=== PATIENT | male | born 1935 | race African-American/Black ===

== ENCOUNTER 2020-05-19 21:31 | Inpatient (IN) ==
[2020-05-19] MEDS ORDERED: cloNIDine 0.1 MG TABLET PO STA (22:15)
[2020-05-19] MEDS ORDERED: cloNIDine 0.1 MG TABLET ONE (22:15)
[2020-05-19] MEDS ORDERED: SODIUM CHLORIDE 0.9% 1,000 ML IV STA (22:31)
[2020-05-19] MEDS ORDERED: ONDANSETRON 4 MG/2 ML VIAL IV STA (22:31)
[2020-05-19] MEDS ORDERED: MORPHINE 4 MG/1 ML VIAL IV STA (22:31)
[2020-05-19 22:38] LABS: Basophils % 0.2 % (0.0-0.8); Eosinophils % 0.1 % (0.00-10.9); Hemoglobin 11.4 GM/DL (14.0-18.0); Immature Granulocytes % 0.5 %; Immature Granulocytes Absolute 0.06 #; Lymphocytes # 1.4 10*3/uL (1.4-4.0); Lymphocytes % 12.2 % (21.2-54.2); Mean Corpuscular HGB Conc 32.6 GM/DL (32-36); Mean Corpuscular Volume 106.4 FL (87-102); Mean Platelet Volume 9.8 FL (9.6-12.0); Monocytes % 5.5 % (1.7-12.7); Neutrophils % 81.5 % (38.7-73.9); Platelet Count 230 T/CUMM (130-400); Red Blood Count 3.29 MC/CUMM (3.8-5.5); Red Cell Distribution Width 12.9 % (9.3-17.3); White Blood Count 11.4 T/CUMM (4-12)
[2020-05-19 22:46] LABS: PT Patient Result 10.3 SECS (9.8-11.9); Partial Thromboplastin Time 28.9 SECS (23.9-33.8)
[2020-05-19 22:50] LABS: Alanine Aminotransferase 21 U/L (16-61); Albumin 2.9 G/DL (3.4-5.0); Alkaline Phosphatase 173 U/L (45-117); Aspartate Amino Transferase 22 U/L (0-37); Bilirubin,Total < 0.39 MG/DL (0.2-1.0); Blood Urea Nitrogen 26 MG/DL (7-18); Calcium 8.9 MG/DL (8.5-10.1); Estimated Glom Filtration Rate 59 ML/MIN; Glucose 135 MG/DL (74-106); Osmolality,Calculated 289.1 MOS/KG (273-304); Total Protein 7.3 G/DL (6.4-8.3)
[2020-05-19] MEDS ORDERED: hydrALAZINE 20 MG/1 ML VIAL IV STA (23:43)
[2020-05-20] MEDS ORDERED: MORPHINE 4 MG/1 ML VIAL IV PRN (02:15)
[2020-05-20] MEDS ORDERED: GLUCAGON 1 MG VIAL IM PRN (02:15)
[2020-05-20] MEDS ORDERED: DEXTROSE 50% 25 GM/50 ML VIAL IV PRN (02:15)
[2020-05-20] MEDS ORDERED: ONDANSETRON 4 MG/2 ML VIAL IV PRN (02:15)
[2020-05-20] MEDS ORDERED: hydrALAZINE 20 MG/1 ML VIAL IV PRN (02:30)
[2020-05-20] MEDS ORDERED: MAGNESIUM SULF RIDER 2 GM in PREMIX 1 EACH IV PRN (02:31)
[2020-05-20] MEDS ORDERED: MAGNESIUM SULF RIDER 4 GM in PREMIX 1 EACH IV PRN (02:31)
[2020-05-20] MEDS: SODIUM CHLORIDE 0.9% 1,000 ML IV SCH ×2 (03:00→16:26)
[2020-05-20 08:18] LABS: Basophils % 0.3 % (0.0-0.8); Eosinophils % 0.4 % (0.00-10.9); Hematocrit 34.9 VOL% (42.0-52.0); Hemoglobin 11.1 GM/DL (14.0-18.0); Immature Granulocytes % 0.4 %; Immature Granulocytes Absolute 0.03 #; Lymphocytes # 1.7 10*3/uL (1.4-4.0); Lymphocytes % 21.5 % (21.2-54.2); Mean Corpuscular HGB Conc 31.8 GM/DL (32-36); Mean Corpuscular Volume 106.4 FL (87-102); Mean Platelet Volume 9.9 FL (9.6-12.0); Monocytes % 7.8 % (1.7-12.7); Neutrophils % 69.6 % (38.7-73.9); Platelet Count 236 T/CUMM (130-400); Red Blood Count 3.28 MC/CUMM (3.8-5.5); Red Cell Distribution Width 12.8 % (9.3-17.3); White Blood Count 7.7 T/CUMM (4-12)
[2020-05-20 08:54] LABS: Alanine Aminotransferase 19 U/L (16-61); Albumin 2.6 G/DL (3.4-5.0); Alkaline Phosphatase 167 U/L (45-117); Aspartate Amino Transferase 30 U/L (0-37); Bilirubin,Total < 0.39 MG/DL (0.2-1.0); Blood Urea Nitrogen 21 MG/DL (7-18); Calcium 8.8 MG/DL (8.5-10.1); Estimated Glom Filtration Rate 82 ML/MIN; Glucose 75 MG/DL (74-106); Total Protein 6.5 G/DL (6.4-8.3)
[2020-05-20] MEDS: PANTOPRAZOLE 40 MG VIAL IV SCH ×2 (09:58→20:14)
[2020-05-21] MEDS: SODIUM CHLORIDE 0.9% 1,000 ML IV SCH ×2 (02:22→15:16)
[2020-05-21 06:05] LABS: Calcium 8.3 MG/DL (8.5-10.1)
[2020-05-21 06:06] LABS: Osmolality,Calculated 281.1 MOS/KG (273-304)
[2020-05-21] MEDS: PANTOPRAZOLE 40 MG VIAL IV SCH ×2 (08:41→20:08)
[2020-05-21] MEDS: LACTATED RINGERS 1,000 ML IV SCH (15:16)
[2020-05-22] MEDS: LACTATED RINGERS 1,000 ML IV SCH (04:46)
[2020-05-22] MEDS: PANTOPRAZOLE 40 MG VIAL IV SCH (08:43)
[2020-05-22 09:34] LABS: Calcium 8.8 MG/DL (8.5-10.1); Osmolality,Calculated 282.3 MOS/KG (273-304)
[2020-05-22 11:53] VITALS: BP 146/56
== END 2020-05-22 14:20 | disposition home or self-care (01) | DRG 390 ==
LOC: EDUNIT# → EDBD → N.ED 21:31 → SUATTDRO 05-20 02:15 → N.EDINP 05-20 02:15 → N.5E 05-20 03:36
PROVIDERS: ADMIT Student in an Organized Health Care Education/Training Program; ATTEND Internal Medicine

== ENCOUNTER 2022-01-29 08:58 | Inpatient (IN) ==
[2022-01-29 09:36] LABS: RBC,Urine 13 /HPF (0-4); Squamous Epithelial Cell,Urine Occasional /HPF (0-10)
[2022-01-29 09:36] LABS: Basophils % 0.4 % (0.0-0.8); Hematocrit 31.7 VOL% (42.0-52.0); Hemoglobin 9.8 GM/DL (14.0-18.0); Immature Granulocytes % 0.4 %; Immature Granulocytes Absolute 0.01 #; Lymphocytes # 0.3 10*3/uL (1.4-4.0); Mean Corpuscular HGB Conc 30.9 GM/DL (32-36); Mean Corpuscular Volume 102.6 FL (87-102); Monocytes # 0.7 10*3/uL (0.11-0.8); Monocytes % 29.6 % (1.7-12.7); Neutrophils % 55.6 % (38.7-73.9); Platelet Count 159 T/CUMM (130-400); Red Blood Count 3.09 MC/CUMM (3.8-5.5); White Blood Count 2.4 T/CUMM (4-12)
[2022-01-29 09:37] LABS: Bilirubin,Urine Negative (Negative); Blood, Urine Moderate mg/dL (Negative); Glucose,Urine (UA) Negative (Negative); Ketones,Urine Negative (Negative); Nitrite,Urine Negative (Negative); Protein,Urine 100 mg/dL (Negative); Urine Appearance Cloudy (Clear); Urine Color Yellow (Yellow); Urine Specific Gravity 1.015 (1.001-1.035); Urine Urobilinogen 0.2 eU/dL (<2.0); Urine pH 6.5 (4.5-8.0)
[2022-01-29 09:47] LABS: INR 1.6; PT Patient Result 17.2 SECS (10.1-12.1); Partial Thromboplastin Time 39.6 SECS (23.7-32.9)
[2022-01-29 09:57] LABS: Band Neutrophils 4 % (0-10); Eosinophils 3 % (0-10); Lymphocytes 14 % (20-55); Platelet Estimate Decreased; Total Cells Counted 100
[2022-01-29 09:58] LABS: Ovalocytes Slight
[2022-01-29 10:05] LABS: Albumin 2.3 G/DL (3.4-5.0); Bilirubin,Total 0.6 MG/DL (0.20-1.00); Osmolality,Calculated 279.1 MOS/KG (273-304); Total Protein 6.1 G/DL (6.4-8.2)
[2022-01-29 10:06] LABS: Alanine Aminotransferase 41 U/L (16-61); Albumin 2.3 G/DL (3.4-5.0); Alkaline Phosphatase 191 U/L (45-117); Amylase 43 U/L (25-115); Aspartate Amino Transferase 55 U/L (0-37); Bilirubin,Indirect 0.5 MG/DL (0.0-1.0); Total Protein 5.6 G/DL (6.4-8.2)
[2022-01-29 10:36] LABS: Ammonia < 10 UMOL/L (11-32)
[2022-01-29] MEDS ORDERED: ONDANSETRON 4 MG/2 ML VIAL IV STA (11:29)
[2022-01-29] MEDS ORDERED: HYDROmorphone 1 MG/1 ML SYRINGE IV STA (11:29)
[2022-01-29] MEDS ORDERED: cefTRIAXone 1,000 MG in SODIUM CHLORIDE 0.9% 100 ML IV STA (11:31)
[2022-01-29] MEDS ORDERED: cefTRIAXone 1,000 MG VIAL ONE (11:32)
[2022-01-29] MEDS ORDERED: SODIUM CHLORIDE 0.9% 100 ML IV ONE (11:33)
[2022-01-29] MEDS ORDERED: GLUCAGON 1 MG VIAL IM PRN (12:49)
[2022-01-29] MEDS ORDERED: DEXTROSE 10% 250 ML BAG IV PRN (12:49)
[2022-01-29] MEDS ORDERED: ONDANSETRON 4 MG/2 ML VIAL IV PRN (12:55)
[2022-01-29] MEDS ORDERED: ACETAMINOPHEN 325 MG TABLET PO PRN (13:03)
[2022-01-29] MEDS: ENOXAPARIN 40 MG/0.4 ML SYRINGE SUBCUT SCH (13:20)
[2022-01-29] MEDS: SODIUM CHLORIDE 0.9% 1,000 ML IV SCH (13:20)
[2022-01-29] MEDS ORDERED: SODIUM CHLORIDE 0.9% 1,000 ML IV ONE (15:54)
[2022-01-29] MEDS ORDERED: HYDROCORTISONE 100 MG VIAL IV ONE (15:55)
[2022-01-29] MEDS: CYPROHEPTADINE 4 MG TABLET PO SCH ×2 (16:24→21:37)
[2022-01-29] MEDS: HYDROCORTISONE 100 MG VIAL IV SCH (23:53)
[2022-01-30] MEDS: SODIUM CHLORIDE 0.9% 1,000 ML IV SCH (01:07)
[2022-01-30 05:05] LABS: Basophils % 0.4 % (0.0-0.8); Hematocrit 28.2 VOL% (42.0-52.0); Hemoglobin 8.9 GM/DL (14.0-18.0); Immature Granulocytes % 0.2 %; Immature Granulocytes Absolute 0.01 #; Lymphocytes # 0.5 10*3/uL (1.4-4.0); Lymphocytes % 8.1 % (21.2-54.2); Mean Corpuscular HGB Conc 31.6 GM/DL (32-36); Mean Corpuscular Volume 99.6 FL (87-102); Mean Platelet Volume 10.3 FL (9.6-12.0); Monocytes # 0.6 10*3/uL (0.11-0.8); Monocytes % 11.2 % (1.7-12.7); Neutrophils % 80.1 % (38.7-73.9); Platelet Count 158 T/CUMM (130-400); Red Blood Count 2.83 MC/CUMM (3.8-5.5); White Blood Count 5.6 T/CUMM (4-12)
[2022-01-30] MEDS ORDERED: LACTULOSE 20 GM/30 ML UDCUP PO PRN (05:20)
[2022-01-30] MEDS ORDERED: MAGNESIUM HYDROXIDE SUSP 30 ML UDCUP PO PRN ×2 (05:20→05:57)
[2022-01-30 05:27] LABS: % Iron Saturation 8.4 % (18-50); Albumin 1.9 G/DL (3.4-5.0); Bilirubin,Total 0.5 MG/DL (0.20-1.00); Calcium 8.2 MG/DL (8.5-10.1); Osmolality,Calculated 284.7 MOS/KG (273-304); Potassium 4.4 MMOL/L (3.5-5.1); Total Protein 5.5 G/DL (6.4-8.2)
[2022-01-30 05:28] LABS: Band Neutrophils 3 % (0-10); Burr Cells Slight; Hypochromia Slight; Lymphocytes 7 % (20-55); Ovalocytes Slight; Platelet Estimate Adequate; Total Cells Counted 100
[2022-01-30 05:30] LABS: Folate > 24.00 NG/ML (5.38-24.0); Vitamin B12 > 2000 PG/ML (211-911)
[2022-01-30] MEDS: LEVOTHYROXINE 125 MCG TABLET PO SCH (06:00)
[2022-01-30] MEDS: cefTRIAXone 1,000 MG in SODIUM CHLORIDE 0.9% 100 ML IV SCH (09:47)
[2022-01-30] MEDS: FERROUS SULFATE 325 MG TABLET PO SCH ×2 (09:48→14:54)
[2022-01-30] MEDS: HYDROCORTISONE 100 MG VIAL IV SCH ×2 (09:48→15:55)
[2022-01-30] MEDS: FOLIC ACID 1 MG TABLET PO SCH ×2 (09:48→14:55)
[2022-01-30] MEDS: buPROPion 75 MG TABLET PO SCH ×2 (09:48→14:55)
[2022-01-30] MEDS: PANTOPRAZOLE 40 MG TABLET PO SCH ×2 (09:48→14:55)
[2022-01-30] MEDS: TAMSULOSIN 0.4 MG CAPSULE PO SCH ×2 (09:48→14:55)
[2022-01-30] MEDS: MULTIVITAMIN (CENTRUM) TABLET PO SCH ×2 (09:49→14:54)
[2022-01-30] MEDS: CYPROHEPTADINE 4 MG TABLET PO SCH ×4 (09:49→21:52)
[2022-01-30] MEDS ORDERED: LACTULOSE 20 GM/30 ML UDCUP PO ONE (10:50)
[2022-01-30] MEDS: LACTATED RINGERS 1,000 ML IV SCH ×2 (12:57→19:59)
[2022-01-30] MEDS: ENOXAPARIN 40 MG/0.4 ML SYRINGE SUBCUT SCH (14:35)
[2022-01-30] MEDS ORDERED: INSULIN REGULAR 100 UNIT/ML SUBCUT ONE (21:45)
[2022-01-30] MEDS: DOCUSATE SODIUM 100 MG CAPSULE PO SCH (21:52)
[2022-01-30] MEDS: ZINC OXIDE PASTE 113 GM TUBE TOP SCH (21:52)
[2022-01-30] MEDS: POLYETHYLENE GLYCOL POWDER 17 GM PACK PO SCH (21:52)
[2022-01-31] MEDS: HYDROCORTISONE 100 MG VIAL IV SCH ×4 (00:22→23:27)
[2022-01-31] MEDS: LACTATED RINGERS 1,000 ML IV SCH ×3 (04:00→22:57)
[2022-01-31 05:43] LABS: Basophils % 0.1 % (0.0-0.8); Hematocrit 26.1 VOL% (42.0-52.0); Hemoglobin 8.2 GM/DL (14.0-18.0); Immature Granulocytes % 0.6 %; Immature Granulocytes Absolute 0.05 #; Lymphocytes # 0.6 10*3/uL (1.4-4.0); Lymphocytes % 7.5 % (21.2-54.2); Mean Corpuscular HGB Conc 31.4 GM/DL (32-36); Mean Corpuscular Volume 99.2 FL (87-102); Mean Platelet Volume 10.4 FL (9.6-12.0); Monocytes # 0.8 10*3/uL (0.11-0.8); Monocytes % 9.8 % (1.7-12.7); Platelet Count 169 T/CUMM (130-400); Red Blood Count 2.63 MC/CUMM (3.8-5.5); Red Cell Distribution Width 15.5 % (9.3-17.3); White Blood Count 8.1 T/CUMM (4-12)
[2022-01-31 05:58] LABS: Calcium 8.3 MG/DL (8.5-10.1); Osmolality,Calculated 293.1 MOS/KG (273-304); Potassium 3.6 MMOL/L (3.5-5.1)
[2022-01-31] MEDS: LEVOTHYROXINE 125 MCG TABLET PO SCH (06:04)
[2022-01-31 06:10] LABS: Hypochromia Slight; Lymphocytes 10 % (20-55); Microcytosis Slight; Platelet Estimate Adequate; Total Cells Counted 100
[2022-01-31] MEDS: TAMSULOSIN 0.4 MG CAPSULE PO SCH (09:01)
[2022-01-31] MEDS: DOCUSATE SODIUM 100 MG CAPSULE PO SCH ×2 (09:01→21:00)
[2022-01-31] MEDS: buPROPion 75 MG TABLET PO SCH (09:01)
[2022-01-31] MEDS: CYPROHEPTADINE 4 MG TABLET PO SCH ×3 (09:01→21:01)
[2022-01-31] MEDS: FOLIC ACID 1 MG TABLET PO SCH (09:02)
[2022-01-31] MEDS: MULTIVITAMIN (CENTRUM) TABLET PO SCH (09:02)
[2022-01-31] MEDS: FERROUS SULFATE 325 MG TABLET PO SCH ×2 (09:02→21:01)
[2022-01-31] MEDS: PANTOPRAZOLE 40 MG TABLET PO SCH (09:02)
[2022-01-31] MEDS: POLYETHYLENE GLYCOL POWDER 17 GM PACK PO SCH ×2 (09:03→21:01)
[2022-01-31] MEDS: ZINC OXIDE PASTE 113 GM TUBE TOP SCH ×2 (09:03→21:01)
[2022-01-31] MEDS: cefTRIAXone 1,000 MG in SODIUM CHLORIDE 0.9% 100 ML IV SCH (10:11)
[2022-01-31] MEDS: ENOXAPARIN 40 MG/0.4 ML SYRINGE SUBCUT SCH (13:42)
[2022-01-31] MEDS: MEROPENEM 500 MG in SODIUM CHLORIDE 0.9% 100 ML IV SCH ×2 (13:44→21:00)
[2022-01-31] MEDS ORDERED: POLYETHYLENE GLYCOL POWDER 17 GM PACK PO SCH (21:00)
[2022-02-01] MEDS: MEROPENEM 500 MG in SODIUM CHLORIDE 0.9% 100 ML IV SCH ×3 (01:30→15:23)
[2022-02-01 05:31] LABS: Basophils % 0.1 % (0.0-0.8); Hematocrit 24.6 VOL% (42.0-52.0); Hemoglobin 7.7 GM/DL (14.0-18.0); Immature Granulocytes % 0.7 %; Immature Granulocytes Absolute 0.07 #; Lymphocytes # 0.8 10*3/uL (1.4-4.0); Lymphocytes % 8.2 % (21.2-54.2); Mean Corpuscular HGB Conc 31.3 GM/DL (32-36); Mean Corpuscular Volume 99.2 FL (87-102); Mean Platelet Volume 10.7 FL (9.6-12.0); Monocytes # 0.8 10*3/uL (0.11-0.8); Monocytes % 8.5 % (1.7-12.7); Neutrophils % 82.5 % (38.7-73.9); Platelet Count 144 T/CUMM (130-400); Red Blood Count 2.48 MC/CUMM (3.8-5.5); Red Cell Distribution Width 15.9 % (9.3-17.3); White Blood Count 9.6 T/CUMM (4-12)
[2022-02-01 05:48] LABS: Calcium 8.3 MG/DL (8.5-10.1); Osmolality,Calculated 298.6 MOS/KG (273-304)
[2022-02-01 05:54] LABS: Band Neutrophils 3 % (0-10); Lymphocytes 5 % (20-55); Total Cells Counted 100
[2022-02-01 05:55] LABS: Microcytosis Slight
[2022-02-01] MEDS: LEVOTHYROXINE 125 MCG TABLET PO SCH (06:13)
[2022-02-01] MEDS ORDERED: POTASSIUM CHLORIDE 20 MEQ TABLET PO ONE (07:43)
[2022-02-01] MEDS: FERROUS SULFATE 325 MG TABLET PO SCH (08:52)
[2022-02-01] MEDS: buPROPion 75 MG TABLET PO SCH (08:53)
[2022-02-01] MEDS: PANTOPRAZOLE 40 MG TABLET PO SCH (08:53)
[2022-02-01] MEDS: POLYETHYLENE GLYCOL POWDER 17 GM PACK PO SCH (08:53)
[2022-02-01] MEDS: TAMSULOSIN 0.4 MG CAPSULE PO SCH (08:53)
[2022-02-01] MEDS: HYDROCORTISONE 100 MG VIAL IV SCH ×2 (08:53→15:24)
[2022-02-01] MEDS: CYPROHEPTADINE 4 MG TABLET PO SCH ×2 (08:53→15:24)
[2022-02-01] MEDS: MULTIVITAMIN (CENTRUM) TABLET PO SCH (08:53)
[2022-02-01] MEDS: FOLIC ACID 1 MG TABLET PO SCH (08:53)
[2022-02-01] MEDS: DOCUSATE SODIUM 100 MG CAPSULE PO SCH (08:53)
[2022-02-01] MEDS: LACTATED RINGERS 1,000 ML IV SCH (09:47)
[2022-02-01] MEDS: ZINC OXIDE PASTE 113 GM TUBE TOP SCH (09:47)
[2022-02-01 13:03] VITALS: BP 113/53
[2022-02-01] MEDS: ENOXAPARIN 40 MG/0.4 ML SYRINGE SUBCUT SCH (14:02)
== END 2022-02-01 18:37 | disposition home health service (06) | DRG 699 ==
LOC: N.ED 08:58 → SUATTDRO 12:46 → N.TELES 12:46
PROVIDERS: ADMIT Internal Medicine; ATTEND Internal Medicine